=== PATIENT | female | born 2000 | race Caucasian/White ===

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

== ENCOUNTER 2024-04-11 00:27 | Inpatient (IN) | payer BC, OTHER ==
[~2024-04-11 00:27] MED LIST changes: +CYCLOBENZAPRINE10 MG PO
[2024-04-11] MEDS ORDERED: fentaNYL citrate 100 MCG/2 ML VIAL ONE (02:15)
[2024-04-11] MEDS ORDERED: ROPIVACAINE 0.2% 200 ML BAG ONE (02:15)
[2024-04-11] MEDS ORDERED: OXYTOCIN/DEXTROSE 5% 20 UNITS/100 ML BAG ONE (02:20)
[2024-04-11] MEDS ORDERED: OXYTOCIN/0.9 % SODIUM CHLORIDE 500 ML IV ONE (05:29)
[2024-04-11] MEDS ORDERED: OXYTOCIN/DEXTROSE 5% 20 UNITS/100 ML BAG IV SCH (06:00)
[2024-04-11] MEDS ORDERED: LACTATED RINGER'S 1,000 ML IV SCH (06:00)
[2024-04-11] MEDS ORDERED: MAGNESIUM HYDROXIDE/AL HYDROX 30 ML CUP PO PRN (06:00)
[2024-04-11] MEDS ORDERED: CALCIUM CARBONATE 500 MG CHEW PO PRN (06:00)
[2024-04-11] MEDS ORDERED: ACETAMINOPHEN 325 MG TAB PO PRN (06:15)
[2024-04-11] MEDS ORDERED: HYDROCORTISONE ACETATE 25 MG SUPP PR PRN (06:15)
[2024-04-11] MEDS ORDERED: BENZOCAINE 60 ML AEROSOL TOP PRN (06:15)
[2024-04-11] MEDS ORDERED: IBUPROFEN 600 MG TAB PO PRN (06:15)
[2024-04-11] MEDS ORDERED: WITCH HAZEL/GLYCERIN 1 EA PAD TOP PRN (06:15)
[2024-04-11] MEDS ORDERED: OXYTOCIN/0.9 % SODIUM CHLORIDE 500 ML IV SCH (06:15)
[2024-04-11] MEDS ORDERED: HYDROCODONE/ACETA 5/325 TAB PO PRN (06:15)
[2024-04-11] MEDS ORDERED: SENNOSIDES/DOCUSATE 1 EA TAB PO SCH (09:00)
[2024-04-12 05:57] LABS: HEMATOCRIT 35.7 % (35.0-50.0); HEMOGLOBIN 12.2 g/dL (12.0-18.0); MCH 30.5 (27-36); MCHC 34.2 g/dl (30-36); MCV 89.2 fl (81-99); RBC 4.01 M/ul (4.3-5.7); RDW 13.6 (10.5-15.0)
[2024-04-16 14:00] LABS: AMNISURE ROM TEST POSITIVE
[2024-04-16 14:17] LABS: AMPHETAMINES, URINE NEGATIVE (NEGATIVE); BARBITURATES, URINE NEGATIVE (NEGATIVE); BENZODIAZEPINE, URINE NEGATIVE (NEGATIVE); BUPRENORPHINE, URINE NEGATIVE (NEGATIVE); CANNABINOID, URINE POSITIVE (NEGATIVE); COCAINE, URINE NEGATIVE (NEGATIVE); ECSTASY, URINE NEGATIVE (NEGATIVE); FENTANYL, URINE NEGATIVE (NEGATIVE); HEMATOCRIT 36.6 % (35.0-50.0); METHADONE, URINE NEGATIVE (NEGATIVE); OPIATES, URINE NEGATIVE (NEGATIVE); OXYCODONE, URINE NEGATIVE (NEGATIVE); PHENCYCLIDINE, URINE NEGATIVE (NEGATIVE); RBC 4.09 M/ul (4.3-5.7)
[2024-04-16 14:18] LABS: ABO A; ANTIBODY SCREEN NEGATIVE; MCH 29.4 (27-36); MCHC 32.9 g/dl (30-36); MCV 89.4 fl (81-99); RDW 13.3 (10.5-15.0); RH POSITIVE
== END 2024-04-12 12:05 | disposition home or self-care (01) | DRG 807 ==
LOC: FBCO 00:27 → FBC 01:35
PROVIDERS: ADMIT Obstetrics & Gynecology; ATTEND Obstetrics & Gynecology
PROC: 10E0XZZ Delivery of Products of Conception, External Approach (ICD-10-PCS; principal; 2024-04-11)
PROC: 3E0R3BZ Introduction of Anesthetic Agent into Spinal Canal, Percutaneous Approach (ICD-10-PCS; 2024-04-11)
PROC: 00HU33Z Insertion of Infusion Device into Spinal Canal, Percutaneous Approach (ICD-10-PCS; 2024-04-11)
DX: O48.0 Post-term pregnancy (principal); Z37.0 Single live birth; Z3A.40 40 weeks gestation of pregnancy
CPT/HCPCS: 01960; 36415; 80307; 84112; 85027; 86850; 86900; 86901; A9270; J2590; J2795; J3010; J7121